=== PATIENT | female | born 1950 | race Caucasian/White ===

== ENCOUNTER 2023-12-08 08:27 | Day surgery (SDC) | payer MEDICARE, OTHER ==
[~2023-12-08] VITALS: Ht 162.6 cm; Wt 47.5 kg
[~2023-12-08 08:27] MED LIST: ALPR.25 PO; Anti-Diarrheal2 MG PO; BOSWELLIA SERRA10 GM MC; Boniva150 MG PO; CALCITRATE200 MG; CYAN1000I IM; FISH OIL 1,0001 EAC1 PO; FOLGARD TABLET1 EACH; LEVSOD50 PO; ONDA8 PO; OXYACE5T PO; PARO10 PO; RIFA550T2 PO
[2023-12-08] MEDS ORDERED: CALCIUM 600-VI1 EAC6 PO (08:51)
[2023-12-08] MEDS ORDERED: FINA5 PO (08:51)
[2023-12-08] MEDS ORDERED: ROSU5 PO (08:51)
[2023-12-08] MEDS ORDERED: BUDESONIDE EC3 M1 PO (08:53)
[2023-12-08] MEDS ORDERED: PROLIA60 MG/1 ML SQ (08:53)
[2023-12-08] MEDS ORDERED: PRED FORTE5 ML LEFTEYE (08:54)
[2023-12-08 11:07] VITALS: BP 108/77
== END 2023-12-08 11:07 | disposition home or self-care (01) ==
LOC: ORSCSDS 08:27
PROVIDERS: Internal Medicine Gastroenterology
PROC: 0DBN8ZX Excision of Sigmoid Colon, Via Natural or Artificial Opening Endoscopic, Diagnostic (ICD-10-PCS; principal; 2023-12-08 09:45)
DX: Z12.11 Encounter for screening for malignant neoplasm of colon (principal); K63.5 Polyp of colon; K57.30 Diverticulosis of large intestine without perforation or abscess without bleeding; Z85.850 Personal history of malignant neoplasm of thyroid; Z79.899 Other long term (current) drug therapy
CPT/HCPCS: 88305; J2704; J7120